=== PATIENT | female | born 1995 | race Caucasian/White ===

== ENCOUNTER 2018-04-10 21:24 | Emergency (ER) | payer OTHER, SELFPAY ==
[2018-04-10 21:42] VITALS: BP 145/98; PULSE 101; RESP 20; O2SAT 99; BMI 22.4
--- NOTE | 2018-04-10 21:46 | ED.ABDPAIN ---
HPI - Abdominal Pain General Chief Complaint: Extremity Problem,Nontraumatic Stated Complaint: LEFT HAND TIP OF INDEX FINGER GOT BIT BY SOMETHING Time Seen by Provider: 04/10/18 21:28 Source: patient Mode of arrival: ambulatory Limitations: no limitations History of Present Illness HPI narrative: 22-year-old otherwise healthy female presents to the emergency department for evaluation of the possibility of an animal bite on the tip of her left index finger. She was camping on [facility] and she woke up and found a small abrasion on the tip of her finger. She thinks she remembers in the middle of the night perhaps something in her tent but is unclear. She denies any pain, swelling or redness. She is otherwise well and free of complaint Review of Systems Review of Systems All systems reviewed & are unremarkable except as noted in HPI and below Constitutional Denies chills, Denies fever(s), Denies lethargy and Denies weakness Eyes Denies change in vision, Denies eye discharge, Denies irritation and Denies loss of vision ENT Ears, Nose, Mouth, and Throat: Denies change in voice, Denies neck pain and Denies sore throat Cardiovascular Denies chest pain, Denies irregular heart rhythm, Denies lightheadedness, Denies palpitations, Denies dyspnea, Denies dyspnea on exertion and Denies orthopnea Respiratory Denies cough, Denies dyspnea, Denies dyspnea on exertion and Denies wheezing Gastrointestinal Gastrointestinal: Denies abdominal pain, Denies change in bowel habits, Denies diarrhea, Denies nausea and Denies vomiting Genitourinary Denies hematuria, Denies flank pain, Denies urinary incontinence and Denies urinary urgency Musculoskeletal Denies neck pain Integumentary/Breasts Denies pruritus, Denies erythema, Denies rash and Reports wounds Neurologic Denies confusion, Denies loss of vision and Denies weakness Psychiatric Denies anxiety, Denies confusion, Denies depression, Denies homicidal ideation and Denies suicidal ideation Endocrine Denies palpitations Hematologic/Lymphatic Denies easy bruising Allergic/Immunologic Denies wheezing Exam Narrative Exam Narrative: GEN: 22-year-old female AOx3 and in no obvious distress EYES: Pupils are equal, round, and reactive to light and accommodation. Extraoccular muscles are intact bilaterally. There is no subconjunctival hemorrhage or exudate. CHEST: Lungs are clear to auscultation bilaterally and free of wheezes, rales, or rhonchi. Heart rate is regular rhythm, there are no murmurs, clicks, rubs, or gallops. There is no chest wall tenderness. ABD: Abdomen is soft and nontender. There is no guarding or rebound. Bowel sounds are normal in all 4 quadrants. There is no mass or organomegaly. EXT: Small superficial abrasion on the tip of left index finger. No other swelling, erythema or significant pain Full painless ROM of all extremities with no loss of sensation or strength. SKIN: Warm, pink, and dry. No erythema or rash Initial Vital Signs Initial Vital Signs: Vital Signs Pulse Rate 101 H 04/10/18 21:42 Respiratory Rate 20 04/10/18 21:42 Blood Pressure 145/98 H 04/10/18 21:42 Pulse Oximetry 99 04/10/18 21:42 Course Vital Signs - 8 hr 04/10/18 21:42 Pulse Rate 101 H Respiratory Rate 20 Blood Pressure 145/98 H Pulse Oximetry 99 Discharge Plan Departure Patient Disposition: Home Clinical Impression: Animal bite of index finger Discharge Date/Time: 04/10/18 22:13 Interventions: ED Discharge Assessment Last Done: 04/10/18 22:13 Instructions: DI for Animal Bites Activity Restrictions/Additional Instructions: *You have been diagnosed with [ animal bite left index finger ] *What to do: *Follow up with your primary care provider in 2-3 days, call for an appointment. Let them know you were seen in the Emergency Department and that we ask that you be seen in follow up *Return to ER if you should have any new, worsening or concerning symptoms, such as [ increasing pain, redness, or swelling]
== END 2018-04-10 22:13 | disposition home or self-care (01) ==
PROVIDERS: Emergency Provider Emergency Medicine
DX: S61.351A Open bite of left index finger with damage to nail, initial encounter (principal)
CPT/HCPCS: 99282